=== PATIENT | female | born 2000 | race Asian ===

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

== ENCOUNTER 2023-09-26 01:08 | Emergency (ER) | payer OTHER ==
[~2023-09-26] VITALS: Ht 157.5 cm; Wt 59.1 kg
[~2023-09-26 01:08] MED LIST: LEXAPRO 5MG5 MG PO; TRI-SPRINTEC 281 TAB
[2023-09-26 01:12] VITALS: BP 114/78; TEMP 98
[2023-09-26] MEDS ORDERED: Acetaminophen 325 MG TAB PO ONE (01:30)
[2023-09-26] MEDS ORDERED: Ibuprofen 400 MG TAB PO ONE (01:30)
[2023-09-26 02:06] VITALS: PULSE 79
== END 2023-09-26 02:06 | disposition home or self-care (01) ==
LOC: COL.ER 01:08
DX: S30.0XXA Contusion of lower back and pelvis, initial encounter (principal); W10.9XXA Fall (on) (from) unspecified stairs and steps, initial encounter